=== PATIENT | female | born 1955 | race Caucasian/White ===

== ENCOUNTER 2017-12-07 16:34 | Emergency (ER) | payer OTHER ==
[~2017-12-07] VITALS: Ht 165.1 cm; Wt 142.7 kg
[~2017-12-07 16:34] MED LIST: ASPIRIN E.C.81 M1 PO; Cipro PO; ELAVIL75 MG PO; ENDOCET 5-3251 EACH PO; Elavil PO; FLAGYL500 MG PO; GLIMEPIRIDE4 MG PO; GLUCOPHAGE1000 MG PO; HYDROCHLOROTHIA25 MG PO; Hydrodiuril,Oretic,E PO; INDERAL LA160 MG PO; INDERAL LA80 MG PO; IRON325 M1 PO; KEPPRA500 MG PO; Levothroid,Synthroid PO; METFORMIN HCL1000 MG PO; Prilosec PO; SYNTHROID75 MCG PO; VITAMIN D400 UNIT PO; ZESTRIL,PRINIVI10 M1 PO; ZESTRIL,PRINIVI10 MG PO
[2017-12-07 17:31] LABS: BASOPHIL (%) 0.5 % (0-1); EOSINOPHIL (%) 1.6 % (0-5); EOSINOPHIL COUNT 0.1 K/uL (0-0.3); HEMATOCRIT 33.8 % (36.0-46.0); HEMOGLOBIN 11.1 G/DL (11.9-15.5); IMMATURE GRANULOCYTE (%) 0.7 % (0.0-0.7); LYMPHOCYTE (%) 14.7 % (15-42); LYMPHOCYTE COUNT 1.3 K/uL (1.0-2.8); MCH 29.3 PG (29.0-34.0); MCHC 32.8 G/DL (30.0-36.0); MCV 89.2 FL (83-99); MONOCYTE (%) 6.7 % (3-12); MONOCYTE COUNT 0.6 K/uL (0-0.8); NEUTROPHIL (%) 75.8 % (45-76); NEUTROPHIL COUNT 6.5 K/uL (1.8-6.4); PLATELET COUNT 255 K/uL (156-360); RBC DIS.WIDTH-CV 14.4 % (11.8-14.6); RBC DIS.WIDTH-SD 46.5 % (39-53); RED BLOOD COUNT 3.79 M/uL (3.80-5.20); WHITE BLOOD COUNT 8.6 K/uL (4.1-10.2)
[2017-12-07 17:39] LABS: CHLORIDE 99 mEq/L (99-109); POTASSIUM 4.1 mEq/L (3.7-5.4); SODIUM 138 mEq/L (136-147)
[2017-12-07 17:41] LABS: GLUCOSE 257 mg/dL (70-99)
[2017-12-07 17:45] LABS: CREATININE 1.4 mg/dL (0.6-1.3); GFR ESTIMATE (CALCULATED) 41 mL/min/
[2017-12-07 17:46] LABS: UREA NITROGEN (BUN) 24 mg/dL (9-23)
[2017-12-07 19:09] LABS: APPEARANCE CLEAR ((CLEAR)); BILIRUBIN NEGATIVE; BLOOD NEGATIVE; COLOR YELLOW ((YELLOW)); GLUCOSE (STRIP) NEGATIVE; KETONES NEGATIVE; LEUKOCYTES MODERATE; NITRITE NEGATIVE; PROTEIN (STRIP) NEGATIVE; SPECIFIC GRAVITY 1.009 (1.000-1.030); UROBILINOGEN 0.2 MG/DL (0.2-1.0)
[2017-12-07 19:16] LABS: BACTERIA NONE SEEN /HPF; EPITHELIAL CELLS RARE /HPF; MUCUS NONE SEEN /LPF; RED BLOOD CELLS 0-5 /HPF (0-5); UCUL ADDED? NO; WHITE BLOOD CELLS 0-5 /HPF (0-5)
[2017-12-07] MEDS ORDERED: DOXYCYCLINE MO100 MG PO (21:01)
[2017-12-07 21:13] VITALS: BP 158/72
== END 2017-12-07 21:14 | disposition home or self-care (01) ==
LOC: EME 16:34
DX: L03.011 Cellulitis of right finger (principal); E11.9 Type 2 diabetes mellitus without complications; I10 Essential (primary) hypertension; K21.9 Gastro-esophageal reflux disease without esophagitis; E03.9 Hypothyroidism, unspecified; Z79.82 Long term (current) use of aspirin; Z79.84 Long term (current) use of oral hypoglycemic drugs; Z87.442 Personal history of urinary calculi; Z86.73 Personal history of transient ischemic attack (TIA), and cerebral infarction without residual deficits; Z90.49 Acquired absence of other specified parts of digestive tract; Z98.890 Other specified postprocedural states
CPT/HCPCS: 73130; 80048; 81003; 83605; 85025; 99281; 99284; J7050